=== PATIENT | male | born 1960 | race Caucasian/White ===

== ENCOUNTER 2021-03-19 11:46 | Emergency (ER) | payer OTHER ==
[~2021-03-19] VITALS: Ht 182.9 cm; Wt 105.0 kg
[2021-03-19 12:00] VITALS: BP 148/80
[2021-03-19] MEDS ORDERED: LIDOCAINE 2% 20 ML VIAL. IJ ONE (13:00)
[2021-03-19] MEDS ORDERED: LIDOCAINE 2% 20 ML VIAL. ONE (13:09)
--- NOTE | 2021-03-19 13:28 | PHYS DOC ---
Past History Past Medical History: No Pertinent History General Adult EDM: Chief Complaint: LACERATION/AVULSION HPI: HPI: Patient is a 60 year old male who presents with laceration to the tip of his left ring finger. 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 He was using a stainless steel knife. He reports he cut the lateral side of his finger mid nailbed and damaged the fingernail as well. He has not been able to stop the bleeding since it began. Patient has no other complaints at this time. Review of Systems: Review of Systems: ROS negative or noncontributory except as mentioned in HPI. Current Medications: Current Meds: Current Medications Medications (Trade) Dose Ordered Sig/Rohan Start Time Stop Time Status Last Admin Dose Admin Lidocaine HCl (Lidocaine 2%) 20 ml 1X ONCE 03/19/21 13:00 03/19/21 13:01 UNV Physical Exam: PE: Constitutional: Well developed, well nourished, no acute distress, non-toxic appearance. Cardiovascular: Heart rate regular rhythm, no murmur. Lungs & Thorax: Bilateral breath sounds clear to auscultation. Skin: Superficial 2-3 mm laceration noted the left ring finger just medial to the fingernail with damage to the fingernail, fingernail does not lift off of the nailbed, no active bleeding on exam. Skin otherwise warm, dry, no erythema, no rash. Current Patient Data: Vital Signs: Vital Signs Date Time Temp Pulse Resp B/P (MAP) Pulse Ox O2 Delivery O2 Flow Rate FiO2 03/19/21 12:00 98.1 64 16 148/80 (102) 97 Room Air Heart Score: C/O Chest Pain: No Course & Med Decision Making: Course & Med Decision Making Pertinent Labs and Imaging studies reviewed. (See chart for details) Patient is an otherwise healthy 60-year-old male who presents with a small laceration to his left ring fingertip. Patient's tetanus vaccine was updated in the last 5 years. He has no other complaints at this time. Laceration repaired with Dermabond as noted below. Patient tolerated procedure well. Patient was given wound care instructions and return precautions. He understands and is agreeable to discharge plan. Dragon Disclaimer: Dragon Disclaimer: This electronic medical record was generated, in whole or in part, using a voice recognition dictation system. Laceration Repair Lac Repair Indication: Laceration to left fingertip Procedure: The patient was placed in the appropriate position and anesthesia around the laceration was digit block of digit 4 using 2% lidocaine, total 4 cc. The area was then irrigated with sterile saline and cleansed with Betadine solution. The laceration was closed with Dermabond. The wound area was then dressed with gauze. Total repaired wound length: 6 mm. Other Items: The patient tolerated the procedure very well. Complications: No complications. Departure Departure: Impression: Primary Impression: Laceration of left ring finger with damage to nail Qualified Codes: S61.315A - Laceration without foreign body of left ring finger with damage to nail, initial encounter Disposition: HOME / SELF CARE / HOMELESS Condition: STABLE Referrals: ELEAZAR HIGUERA MD (PCP) Patient Instructions: Fingertip Laceration Additional Instructions: The laceration to your left fingertip was closed with Dermabond. The dermabond will come off on its own in a period of 7-10 days. You should keep the wound clean and dry. Please return to the emergency department for worsening pain, wound reopening or signs of infection (redness/warmth around the wound, fever, p urulent discharge). VENITA RESENDIZ Mar 19, 2021 13:28
== END 2021-03-19 13:43 | disposition home or self-care (01) ==
LOC: ER 11:46
DX: S61.315A Laceration without foreign body of left ring finger with damage to nail, initial encounter (principal); W26.0XXA Contact with knife, initial encounter; Y93.89 Activity, other specified; Y92.89 Other specified places as the place of occurrence of the external cause; Y99.8 Other external cause status
CPT/HCPCS: 12001; 99282